=== PATIENT | male | born 1940 | race Caucasian/White ===

== ENCOUNTER 2023-11-11 14:49 | Emergency (ER) | payer MEDICARE, OTHER, SELFPAY ==
[2023-11-11 14:54] VITALS: BP 124/79
[2023-11-11 15:27] VITALS: BMI 23.0
--- NOTE | 2023-11-11 15:30 | EDRN ---
Pt threw two cups of water to the floor and took her oxygen off. Pt would not replace or allow this RN to replace oxygen. Pt was offered other activities to do. Pt remained upset. pt said she is upset as she wants to leave this place. Pt informed
that this type of behavior is what is keeping her in this place, like throwing things and yelling in a loud voice.
--- NOTE | 2023-11-11 15:32 | EDRN ---
Nick Baig PA in to see pt at this time.
--- NOTE | 2023-11-11 15:41 | ED.GENMED ---
History of Present Illness
General
Chief Complaint: Throat Problem
Time Seen by Provider: 11/11/23 15:23
History of Present Illness
History of Present Illness:
83-year-old male with history of prior stroke and resultant depressive aphasia presents to the emergency department for evaluation of a suspected esophageal food bolus. Began to have difficulty swallowing and frequent spitting after ingesting a
hamburger earlier this afternoon. On arrival to the emergency department his symptoms have apparently resolved and he is able to swallow. No history of esophageal food bolus or esophageal strictures.
Past History
Past History
ED Past Medical History: Cancer (Prostate), CVA and Hypercholesterolemia; Negative HTN
ED Past Surgical History: Negative Cardiac
Social History
Tobacco: Non-smoker
Alcohol: Occasional
Drug: None
Personal:
Living: with family
Employment: Employed
Family History
Family History: Hypertension; Negative Early CAD
Review of Systems
Review of Systems
Allergies reviewed?: Yes
All Other Systems: ROS reviewed and negative except as documented in HPI and ROS
Phy Exam
Physical Exam
Physical Exam:
GEN: Well appearing, NAD, WDWN
HEENT: Oral mucosa moist, no scleral icterus
Cardiac: Regular rate
Lung: No respiratory distress, no tachypnea
MSK: No gross deformity or injuries
Skin: Good color, no pallor or jaundice, no rashes
Neuro: Alert, follows commands, baseline aphasia with right hemiparesis
Psych: Calm, cooperative
Course
Vital Signs
Initial and Last Documented VS:
Initial Vital Signs
Temp Pulse Resp BP Pulse Ox
98.3 F 81 16 124/79 98
11/11/23 14:54 11/11/23 14:54 11/11/23 14:54 11/11/23 14:54 11/11/23 14:54
Last Documented Vital Signs
Temp Pulse Resp BP Pulse Ox
98.3 F 81 16 131/69 100
11/11/23 14:54 11/11/23 16:44 11/11/23 16:44 11/11/23 16:44 11/11/23 16:44
MDM/Problems Addressed
MDM/Problems Addressed:
Pt tolerated PO liquids w/o difficulty, likely resolved [employer]
*Critical Care Note
Total Time (30-74mins, 75-104mins- exclusive of procedures): Not Applicable
ED Attending Note
-
Portions of this chart may have been created with voice recognition software.� Occasional wrong word or��sound alike� substitutions may have occurred due to the inherent limitations of voice recognition software.
Discharge Plan
Departure
Patient Disposition: Home (Routine Discharge)
Date of Disposition: 11/11/23
Time of Disposition: 16:54
Patient with high blood pressure during this ER visit?: No
Discharge Problem:
Esophageal obstruction due to food impaction
Instructions: Food Obstruction
Prescriptions:
No Action
cyanocobalamin (vitamin B-12) 1,000 MCG tablet
1,000 mcg PO DAILY
cholecalciferol (vitamin D3) [Vitamin D3] 1,000 UNIT capsule
1,000 unit PO DAILY
atorvastatin 40 mg Tablet
40 mg PO HS
Theragen Tablet
1 tab PO DAILY
clopidogrel 75 MG tablet
75 mg PO DAILY Qty: 30 0RF
Referrals:
Anthony Arriaga MD [Family Provider] -
Activity Restrictions/Additional Instructions:
Follow up with your recreation establishment manager for further evaluation
Interventions
Interventions:
*Risk Screen - Suicide Last Done: 11/11/23 15:33
*General Assessment Last Done: 11/11/23 15:33
*Neglect/Abuse Screening Last Done: 11/11/23 15:33
ED- Fall Risk Assessment Last Done: 11/11/23 15:33
*ED COVID-19 Vaccine History Last Done: 11/11/23 15:33
*Nursing Disposition Last Done: 11/11/23 17:15
ED-EENT Assessment Last Done: 11/11/23 15:33
ED- Pulmonary Assessment Last Done: 11/11/23 15:33
Discharge Date and Time
Discharge Date/Time: 11/11/23 17:15
Print Language: [place]
--- NOTE | 2023-11-11 16:32 | EDRN ---
Nick Baig PA in to update pt and spouse. No coughing or coughing up food. Nick Baig PA brought water in for pt to swallow at this time.
[2023-11-11 16:44] VITALS: BP 131/69
== END 2023-11-11 17:15 | disposition home or self-care (01) ==
LOC: EMR 14:49
PROVIDERS: EMERGENCY PHYSICIAN Emergency Medicine; FAMILY PHYSICIAN Family Medicine
DX: T18.128A Food in esophagus causing other injury, initial encounter (principal); W44.F3XA Food entering into or through a natural orifice, initial encounter; I69.320 Aphasia following cerebral infarction; E78.00 Pure hypercholesterolemia, unspecified; Z85.46 Personal history of malignant neoplasm of prostate; Z88.8 Allergy status to other drugs, medicaments and biological substances
CPT/HCPCS: 99282

== ENCOUNTER → 2024-02-01 09:03 | Outpatient (REF) | payer MEDICARE, OTHER, SELFPAY ==
[2024-02-01 13:10] LABS: HDL Cholesterol 49 mg/dl; LDL Cholesterol, Calculated 68 mg/dl; Total Cholesterol 128 mg/dl (50-199); Triglyceride 59 mg/dl (10-149); Very Low Density Lipoprotein 11 mg/dl (0-30)
[2024-02-01 14:09] LABS: Glycohemoglobin (HgbA1c) 5.3 % (4.0-5.6)
[2024-02-01 14:10] LABS: Vitamin D, 25-OH*** 63.8 ng/mL (30-80)
[2024-02-01 14:23] LABS: TSH Reflex To Free T4 2.29 uIU/ml (0.47-4.68)
[2024-02-01 14:43] LABS: Vitamin B12 855 pg/ml (239-931)
== END ==
LOC: REG 09:03
PROVIDERS: ATTENDING PHYSICIAN Psychiatry & Neurology Neurology; FAMILY PHYSICIAN Family Medicine
DX: I63.9 Cerebral infarction, unspecified (principal); I10 Essential (primary) hypertension; R53.1 Weakness
CPT/HCPCS: 36415; 80061; 82306; 82607; 83036; 84443

== ENCOUNTER → 2024-04-06 10:29 | Outpatient (REF) | payer MEDICARE, OTHER, SELFPAY | LOC: RAD 10:29 | PROVIDERS: ATTENDING PHYSICIAN Internal Medicine Gastroenterology; FAMILY PHYSICIAN Family Medicine | DX: R13.19 Other dysphagia (principal) | CPT/HCPCS: 74221 ==

== ENCOUNTER → 2024-11-15 10:12 | Outpatient (REF) | payer MEDICARE, OTHER, SELFPAY | LOC: RAD 10:12 | PROVIDERS: ATTENDING PHYSICIAN Surgery Vascular Surgery; FAMILY PHYSICIAN Family Medicine | DX: I65.29 Occlusion and stenosis of unspecified carotid artery (principal); I65.23 Occlusion and stenosis of bilateral carotid arteries | CPT/HCPCS: 93880 ==

== ENCOUNTER → 2025-02-22 09:58 | Outpatient (REF) | payer MEDICARE, OTHER, SELFPAY | LOC: HWRCS 09:58 | PROVIDERS: ATTENDING PHYSICIAN Internal Medicine; FAMILY PHYSICIAN Family Medicine | DX: Z01.810 Encounter for preprocedural cardiovascular examination (principal); I63.9 Cerebral infarction, unspecified | CPT/HCPCS: 93306 ==